=== PATIENT | male | born 1940 | race Two or more races ===

== ENCOUNTER 2016-04-13 13:12 | Inpatient (IN) | payer MEDICAID, OTHER ==
[~2016-04-13] VITALS: Ht 170.2 cm; Wt 95.3 kg
[2016-04-13] MEDS ORDERED: IV NS 0.9% 500 ML BAG IV ONE (13:30)
[2016-04-13 13:40] LABS: BASOPHILS % (AUTO) 0.4 % (0.0-2.0); DIFF TOTAL % 100 %; EOSINOPHILS % (AUTO) 0.3 % (0.0-6.0); HEMATOCRIT 45 % (39-51); HEMOGLOBIN 15.1 g/dL (13.5-17.5); LYMPHOCYTES % (AUTO) 28.9 % (20.0-44.0); MEAN CORPUSCULAR HEMOGLOBIN 30 PG (26.0-33.0); MEAN CORPUSCULAR HGB CONC 34 g/dl (31.0-36.0); MEAN CORPUSCULAR VOLUME 89 fL (80-96); MONOCYTES # (AUTO) 0.6 /CMM (0.1-1.30); MONOCYTES % (AUTO) 8.7 % (2.0-12.0); NEUTROPHILS # (AUTO) 4.2 /CMM (1.8-8.9); NEUTROPHILS % (AUTO) 61.7 % (43.0-81.0); PLATELET COUNT (AUTO) 232 /CMM (150-450); RED BLOOD CELL COUNT(AUTO) 5.07 MIL/uL (4.5-6.0); WHITE BLOOD COUNT (AUTO) 6.8 K/uL (4.3-11.0)
[2016-04-13 13:42] LABS: KETONES,URINE 15 (NEGATIVE); LEUKOCYTE ESTERASE ,URINE Large (NEGATIVE)
[2016-04-13] MEDS ORDERED: IV NS 0.9% 500 ML IV ONE (13:47)
[2016-04-13] MEDS ORDERED: IV SET PRIMARY PUMP SET 1 EA INFUS.SET MC ONE ×2 (13:47→15:01)
[2016-04-13 13:50] LABS: ADD UA MICROSCOPIC YES
[2016-04-13 13:54] LABS: CREATININE 0.7 mg/dL (0.6-1.3); POTASSIUM 4.4 mmol/L (3.5-5.1)
[2016-04-13] MEDS ORDERED: METOPROLOL TARTRATE INJ 5 MG/5 ML AMPUL IV ONE (14:00)
[2016-04-13] MEDS ORDERED: ASPIRIN 81 MG TAB.CHEW PO ONE (14:00)
[2016-04-13] MEDS ORDERED: METOCLOPRAMIDE HCL 10 MG/2 ML VIAL ONE (14:01)
[2016-04-13] MEDS ORDERED: ASPIRIN 81 MG TAB.CHEW ONE (14:01)
[2016-04-13 14:03] LABS: CALCIUM, SERUM 9.1 mg/dL (8.5-10.1)
[2016-04-13 14:04] LABS: INR 0.99 (0.87-1.13); PROTHROMBIN TIME 10.4 SECS (9.5-12.7)
[2016-04-13 14:20] LABS: ADD URINE CULTURE YES; RBC,URINE 21-50 /HPF (0-2)
[2016-04-13 14:21] LABS: MUCUS,URINE Few /LPF (None Seen)
[2016-04-13] MEDS ORDERED: TAMS-12 PO (14:51)
[2016-04-13] MEDS ORDERED: TRAM50TA2 PO (14:51)
[2016-04-13] MEDS ORDERED: ASPI81TA2 PO (14:51)
[2016-04-13] MEDS ORDERED: METO25TA PO (14:51)
[2016-04-13] MEDS ORDERED: SIMV40TA5 PO (14:51)
[2016-04-13 15:00] VITALS: BP 114/80
[2016-04-13] MEDS ORDERED: CEFTRIAXONE 1GM BAG (ER ONLY) 1 GM/50 ML PIGGYBACK IV ONE (15:00)
[2016-04-13] MEDS ORDERED: CEFTRIAXONE 1GM BAG (ER ONLY) 50 ML IV ONE (15:01)
[2016-04-13 15:30] VITALS: BP 118/76
[2016-04-13] MEDS ORDERED: Z GUARD REMEDY 2 OZ OINT TP PRN (17:00)
[2016-04-13] MEDS ORDERED: ONDANSETRON HCL/PF 4 MG/2 ML VIAL IVP PRN (17:00)
[2016-04-13] MEDS ORDERED: ZOLPIDEM TARTRATE 5 MG TABLET PO PRN (17:00)
[2016-04-13] MEDS ORDERED: MAG HYDROX/AL HYDROX/SIMETH 30 ML UDC PO PRN (17:00)
[2016-04-13] MEDS ORDERED: HYDROCODONE/APAP 5/325MG 1 EACH TABLET PO PRN (17:00)
[2016-04-13] MEDS ORDERED: ACETAMINOPHEN 325 MG TABLET PO PRN (17:00)
[2016-04-13] MEDS ORDERED: MAGNESIUM HYDROXIDE 30 ML UDC PO PRN (17:00)
[2016-04-13 20:00] VITALS: BP 136/83
[2016-04-13] MEDS ORDERED: METOPROLOL TARTRATE 25 MG TABLET PO SCH (21:00)
[2016-04-14] VITALS (7 sets, daily range): BP systolic 103–134; BP diastolic 53–70
[2016-04-14] MEDS: PANTOPRAZOLE 40 MG TABLET.DR PO SCH (07:30)
[2016-04-14 07:37] LABS: BASOPHILS % (AUTO) 0.4 % (0.0-2.0); DIFF TOTAL % 100 %; EOSINOPHILS % (AUTO) 0.6 % (0.0-6.0); HEMATOCRIT 43 % (39-51); HEMOGLOBIN 14.7 g/dL (13.5-17.5); LYMPHOCYTES # (AUTO) 1.8 /CMM (0.8-4.8); LYMPHOCYTES % (AUTO) 33.9 % (20.0-44.0); MEAN CORPUSCULAR HEMOGLOBIN 31 PG (26.0-33.0); MEAN CORPUSCULAR HGB CONC 34 g/dl (31.0-36.0); MEAN CORPUSCULAR VOLUME 90 fL (80-96); MONOCYTES # (AUTO) 0.5 /CMM (0.1-1.30); MONOCYTES % (AUTO) 10.2 % (2.0-12.0); NEUTROPHILS # (AUTO) 2.9 /CMM (1.8-8.9); NEUTROPHILS % (AUTO) 54.9 % (43.0-81.0); PLATELET COUNT (AUTO) 231 /CMM (150-450); RED BLOOD CELL COUNT(AUTO) 4.81 MIL/uL (4.5-6.0); WHITE BLOOD COUNT (AUTO) 5.4 K/uL (4.3-11.0)
[2016-04-14 07:54] LABS: CREATININE 0.7 mg/dL (0.6-1.3); PHOSPHORUS 4.6 mg/dL (2.5-4.9); POTASSIUM 4.3 mmol/L (3.5-5.1)
[2016-04-14 07:58] LABS: THYROID STIMULATING HORMONE 2.564 uIU/mL (0.358-3.74)
[2016-04-14] MEDS ORDERED: SIMVASTATIN 40 MG TABLET PO SCH (09:00)
[2016-04-14 10:17] LABS: %FREE PSA 8.7 % (0-10); FREE PSA 2.78 ng/mL (0.00-45); THYROID STIMULATING HORMONE 2.615 uIU/mL (0.358-3.74)
[2016-04-14] MEDS ORDERED: IV SET PRIMARY PUMP SET 1 EA INFUS.SET MC ONE ×2 (10:37→15:03)
[2016-04-14] MEDS: ASPIRIN 81 MG TAB.CHEW PO SCH (10:46)
[2016-04-14] MEDS: TAMSULOSIN 0.4 MG CAP.SR.24H PO SCH (10:47)
[2016-04-14] MEDS: Magnesium 1GM/D5W 100ML PREMIX 100 ML IV SCH ×2 (12:01→13:49)
[2016-04-14] MEDS: ATORVASTATIN 40 MG TABLET PO SCH (12:03)
[2016-04-14] MEDS: METOPROLOL TARTRATE 25 MG TABLET PO SCH ×2 (12:03→18:21)
[2016-04-14] MEDS ORDERED: IOHEXOL-300 100 ML VIAL IV ONE (12:46)
[2016-04-14] MEDS ORDERED: CT SWABBABLE VALVE TRANS SET 1 EA INFUS.SET MC ONE (12:46)
[2016-04-14] MEDS ORDERED: IV NS 0.9% 250 ML IV ONE (12:46)
[2016-04-14] MEDS: CEFTRIAXONE 1 G in IV D5W 50 ML IV SCH (15:10)
[2016-04-15] VITALS (7 sets, daily range): BP systolic 96–124; BP diastolic 58–76
[2016-04-15] MEDS: METOPROLOL TARTRATE 25 MG TABLET PO SCH ×5 (00:27→23:57)
[2016-04-15 07:17] LABS: VIT D, 25-HYDROXY 22.8 ng/mL (30.0-100.0)
[2016-04-15 08:11] LABS: ALBUMIN 3.6 g/dL (3.4-5.0); BILIRUBIN,TOTAL 0.5 mg/dL (0.2-1.0); CALCIUM, SERUM 8.7 mg/dL (8.5-10.1); CREATININE 0.7 mg/dL (0.6-1.3); PHOSPHORUS 4.3 mg/dL (2.5-4.9); POTASSIUM 4.2 mmol/L (3.5-5.1); TOTAL PROTEIN, SERUM 7.5 g/dL (6.4-8.2)
[2016-04-15 08:19] LABS: BASOPHILS % (AUTO) 0.4 % (0.0-2.0); DIFF TOTAL % 100 %; EOSINOPHILS % (AUTO) 0.7 % (0.0-6.0); HEMATOCRIT 44 % (39-51); LYMPHOCYTES # (AUTO) 2.1 /CMM (0.8-4.8); LYMPHOCYTES % (AUTO) 34.1 % (20.0-44.0); MEAN CORPUSCULAR HEMOGLOBIN 30 PG (26.0-33.0); MEAN CORPUSCULAR HGB CONC 34 g/dl (31.0-36.0); MEAN CORPUSCULAR VOLUME 89 fL (80-96); MONOCYTES # (AUTO) 0.7 /CMM (0.1-1.30); MONOCYTES % (AUTO) 10.7 % (2.0-12.0); NEUTROPHILS # (AUTO) 3.4 /CMM (1.8-8.9); NEUTROPHILS % (AUTO) 54.1 % (43.0-81.0); PLATELET COUNT (AUTO) 227 /CMM (150-450); RED BLOOD CELL COUNT(AUTO) 4.98 MIL/uL (4.5-6.0); WHITE BLOOD COUNT (AUTO) 6.2 K/uL (4.3-11.0)
[2016-04-15] MEDS: ASPIRIN 81 MG TAB.CHEW PO SCH (08:38)
[2016-04-15] MEDS: TAMSULOSIN 0.4 MG CAP.SR.24H PO SCH (08:38)
[2016-04-15] MEDS: ATORVASTATIN 40 MG TABLET PO SCH (08:38)
[2016-04-15] MEDS: PANTOPRAZOLE 40 MG TABLET.DR PO SCH (08:47)
[2016-04-15] MEDS: CEFTRIAXONE 1 G in IV D5W 50 ML IV SCH (15:43)
[2016-04-16] MEDS: METOPROLOL TARTRATE 25 MG TABLET PO SCH ×2 (06:37→11:38)
[2016-04-16 07:18] LABS: BASOPHILS % (AUTO) 0.2 % (0.0-2.0); DIFF TOTAL % 100 %; EOSINOPHILS # (AUTO) 0.1 /CMM (0.0-0.7); EOSINOPHILS % (AUTO) 0.8 % (0.0-6.0); HEMATOCRIT 46 % (39-51); HEMOGLOBIN 15.7 g/dL (13.5-17.5); LYMPHOCYTES # (AUTO) 2.4 /CMM (0.8-4.8); LYMPHOCYTES % (AUTO) 33.1 % (20.0-44.0); MEAN CORPUSCULAR HEMOGLOBIN 30 PG (26.0-33.0); MEAN CORPUSCULAR HGB CONC 34 g/dl (31.0-36.0); MEAN CORPUSCULAR VOLUME 89 fL (80-96); MONOCYTES # (AUTO) 0.7 /CMM (0.1-1.30); NEUTROPHILS # (AUTO) 4.1 /CMM (1.8-8.9); NEUTROPHILS % (AUTO) 55.9 % (43.0-81.0); PLATELET COUNT (AUTO) 239 /CMM (150-450); WHITE BLOOD COUNT (AUTO) 7.4 K/uL (4.3-11.0)
[2016-04-16 08:00] VITALS: BP 127/79
[2016-04-16 09:00] LABS: CALCIUM, SERUM 9.2 mg/dL (8.5-10.1); CREATININE 0.8 mg/dL (0.6-1.3); PHOSPHORUS 4.6 mg/dL (2.5-4.9); POTASSIUM 4.3 mmol/L (3.5-5.1)
[2016-04-16] MEDS: TAMSULOSIN 0.4 MG CAP.SR.24H PO SCH (09:02)
[2016-04-16] MEDS: ASPIRIN 81 MG TAB.CHEW PO SCH (09:02)
[2016-04-16] MEDS: PANTOPRAZOLE 40 MG TABLET.DR PO SCH (09:02)
[2016-04-16] MEDS: ATORVASTATIN 40 MG TABLET PO SCH (09:02)
[2016-04-16] MEDS ORDERED: LEVO750T21 PO (11:33)
[2016-04-16] MEDS ORDERED: ASPI81TA2 PO (11:33)
[2016-04-16 11:38] VITALS: BP 94/76
== END 2016-04-16 15:25 | disposition home health service (06) | DRG 201 ==
LOC: ER 13:13 → TELE 15:06 → MED 17:09 → TELE 17:10 → MED 04-15 12:11
PROVIDERS: ADMIT Internal Medicine; ATTEND Internal Medicine
DX: I48.92 Unspecified atrial flutter (principal); N39.0 Urinary tract infection, site not specified; D68.59 Other primary thrombophilia; N20.0 Calculus of kidney; N28.1 Cyst of kidney, acquired; K44.9 Diaphragmatic hernia without obstruction or gangrene; I25.10 Atherosclerotic heart disease of native coronary artery without angina pectoris; Z95.1 Presence of aortocoronary bypass graft; K42.9 Umbilical hernia without obstruction or gangrene; E78.5 Hyperlipidemia, unspecified; N40.0 Benign prostatic hyperplasia without lower urinary tract symptoms; K40.20 Bilateral inguinal hernia, without obstruction or gangrene, not specified as recurrent; R16.0 Hepatomegaly, not elsewhere classified; C61 Malignant neoplasm of prostate; B96.89 Other specified bacterial agents as the cause of diseases classified elsewhere; I10 Essential (primary) hypertension
CPT/HCPCS: 36415; 71010-TC; 71260-TC; 72193-TC; 74160-TC; 80048-TC; 80053-TC; 80061-TC; 81000-TC; 82105; 82272-TC; 82306; 82378; 82728-TC; 83540-TC; 83615-TC; 83735-TC; 83880; 84100-TC; 84153-TC; 84154-TC; 84443-TC; 84484-TC; 84550-TC; 85025-TC; 85652-TC; 85730-TC; 87081-TC; 87086-TC; 93307-TC; A4606; J0696; J2765; J3475; J7040; J7050; J7060; Q9967; Z7610

== ENCOUNTER 2016-09-09 13:57 | Emergency (ER) | payer OTHER ==
[~2016-09-09] VITALS: Ht 175.3 cm; Wt 99.8 kg
[~2016-09-09 13:57] MED LIST: ASPI81TA2 PO; LEVO750T21 PO; METO-302 PO; SIMV40TA5 PO; TAMS-12 PO; TRAM50TA2 PO
--- NOTE | 2016-09-09 14:00 | NUR ---
coretta pacheco from office for palpitations, patient has no chest pain, no respiratory distress, able to ambulate to bed, able to provide urine upon arrival, placed on monitor, will continue to monitor closely, md at bedside upon arrival .
[2016-09-09] MEDS ORDERED: IV NS 0.9% 500 ML IV ONE (14:13)
[2016-09-09] MEDS ORDERED: IV SET PRIMARY 1 EA INFUS.SET MC ONE (14:13)
[2016-09-09 14:21] LABS: BASOPHILS % (AUTO) 0.4 % (0.0-2.0); EOSINOPHILS % (AUTO) 0.6 % (0.0-6.0); HEMATOCRIT 42 % (39-51); HEMOGLOBIN 13.9 g/dL (13.5-17.5); LYMPHOCYTES # (AUTO) 1.9 /CMM (0.8-4.8); LYMPHOCYTES % (AUTO) 30.9 % (20.0-44.0); MEAN CORPUSCULAR HEMOGLOBIN 30 PG (26.0-33.0); MEAN CORPUSCULAR HGB CONC 33 g/dl (31.0-36.0); MEAN CORPUSCULAR VOLUME 89 fL (80-96); MONOCYTES # (AUTO) 0.7 /CMM (0.1-1.30); MONOCYTES % (AUTO) 10.6 % (2.0-12.0); NEUTROPHILS # (AUTO) 3.6 /CMM (1.8-8.9); NEUTROPHILS % (AUTO) 57.5 % (43.0-81.0); PLATELET COUNT (AUTO) 192 /CMM (150-450); RDW COEFFICIENT OF VARIATION 13.8 (11.5-15.0); RED BLOOD CELL COUNT(AUTO) 4.71 MIL/uL (4.5-6.0); WHITE BLOOD COUNT (AUTO) 6.2 K/uL (4.3-11.0)
[2016-09-09] MEDS ORDERED: ASPI81TA2 PO (14:23)
[2016-09-09] MEDS ORDERED: IV NS 0.9% 500 ML BAG IV ONE (14:30)
[2016-09-09 14:34] LABS: ALCOHOL, BLOOD < 3 mg/dL (0-0)
[2016-09-09 14:36] LABS: INR 0.95 (0.87-1.13); PROTHROMBIN TIME 9.9 SECS (9.5-12.7)
[2016-09-09 14:41] LABS: TROPONIN I < 0.017 ng/mL (0.00-0.056)
[2016-09-09 14:44] LABS: CALCIUM, SERUM 8.9 mg/dL (8.5-10.1); CARBON DIOXIDE 26 mmol/L (21-32); CHLORIDE 105 mmol/L (98-107); CREATININE 0.6 mg/dL (0.6-1.3); GLUCOSE 88 mg/dL (74-106); POTASSIUM 4.1 mmol/L (3.5-5.1); SODIUM SERUM 140 mmol/L (136-145); UREA NITROGEN, BLOOD 12 mg/dL (7-18)
[2016-09-09 14:55] LABS: THYROID STIMULATING HORMONE 2.107 uIU/mL (0.358-3.74)
--- NOTE | 2016-09-09 14:56 | NUR ---
CALLED NURSING SUP. FOR TELE BED
[2016-09-09 15:37] VITALS: BP 115/65
--- NOTE | 2016-09-09 15:38 | NUR ---
Patient discharged to home in stable condition. Written and verbal after care instructions given. Patient verbalizes understanding of instruction. IV removed. Catheter intact and site benign. Pressure and 4x4 applied to site. No bleeding noted. nad noted upon discharge
== END 2016-09-09 15:38 | disposition home or self-care (01) ==
LOC: ER 13:59 → TELE1 15:05 → UNDOADMIN 15:05
DX: I48.92 Unspecified atrial flutter (principal); K46.9 Unspecified abdominal hernia without obstruction or gangrene; Z95.1 Presence of aortocoronary bypass graft; I10 Essential (primary) hypertension; Z79.82 Long term (current) use of aspirin
CPT/HCPCS: 36415; 71010; 80048; 84439; 84443; 84484; 85025; 85730; 87081; 93005; 99285; A4606; G0480; J7040; Z7610